=== PATIENT | female | born 1935 | race Caucasian/White ===

== ENCOUNTER 2016-10-20 08:00 | Outpatient (CLI) | payer MEDICARE, OTHER, MEDICAID | END 2016-10-20 08:01 | disposition home or self-care (01) | DX: J11.1 Influenza due to unidentified influenza virus with other respiratory manifestations (principal) ==

== ENCOUNTER 2017-02-02 01:51 | Outpatient (CLI) | payer MEDICARE, OTHER, MEDICAID | END 2017-02-02 01:52 | disposition critical access hospital (66) | DX: M25.511 Pain in right shoulder (principal); W07.XXXA Fall from chair, initial encounter; Y92.129 Unspecified place in nursing home as the place of occurrence of the external cause | CPT/HCPCS: A0425; A0429 ==

== ENCOUNTER 2017-02-02 01:55 | Emergency (ER) | payer MEDICARE, OTHER, MEDICAID ==
--- NOTE | 2017-02-02 03:22 | CT Preliminary Report ---
Exam: CT Head W/O IMPRESSION: 1. Stable appearance of old right MCA and right FORMING YARDAGE CONTROL OPERATOR territory infarcts compared to the brain CT from 05/20/2014. 2. No acute intracranial process identified. [facility] SITE ID: [id number]
--- NOTE | 2017-02-02 03:23 | XRAY Preliminary Report ---
Exam: XR Shoulder 3 View RT IMPRESSION: Mildly comminuted minimally displaced surgical neck fracture of the right humerus. [facility] SITE ID: [id number]
--- NOTE | 2017-02-02 03:25 | XRAY Report ---
EXAM: RIGHT SHOULDER RADIOGRAPHY EXAM DATE: 02/02/2017 02:57 AM. CLINICAL HISTORY: Fall and the right-sided, pain, COMPARISON: None. TECHNIQUE: 3 views. FINDINGS: Bones: Bones are severely osteopenic. There is a comminuted impacted fracture of the proximal right h umerus through the surgical neck with mild displacement of the greater tuberosity fragment. Distal ri ght clavicular osteotomy. Joints: No dislocation. Soft tissues: Median sternotomy. Lungs are clear. IMPRESSION: Mildly comminuted minimally displaced surgical neck fracture of the right humerus. [facility] Referring Provider Line: [phone] SITE ID: [id number]
--- NOTE | 2017-02-02 03:25 | ED Physician Documentation ---
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 Patient is non-verbal. According to ems patient fell earlier today. she was scheduled to have an arm x-ray tomorrow but night staff stated that they thought she was still in pain so they sent the patient in for evaluation. Review of Systems Unable to obtain: Dementia PD PAST MEDICAL HISTORY - Past Medical History Past Medical History: Yes Cardiovascular: Hypertension, High cholesterol, Atrial fibrillation, Arrhythmia Respiratory: Asthma, COPD Neuro: CVA Endocrine/Autoimmune: Type 2 diabetes Psych: Other Musculoskeletal: Osteoarthritis Other Past Medical History: Dementia; Spastic Hemiplegia affecting L nondominant side; Chronic Pain; Heart Failure; Unspecified Convulsions - Present Medications Home Medications: Ambulatory Orders Medication Instructions Recorded Confirmed Acetaminophen 1 tab PO BID 02/02/17 02/02/17 Benazepril HCl 1 tab PO DAILY 02/02/17 02/02/17 Carvedilol 25 mg PO BID 02/02/17 02/02/17 Furosemide [Lasix] 80 mg PO DAILY 02/02/17 02/02/17 Insulin Glargine [Lantus] 21 units SUBQ QPM 02/02/17 02/02/17 Levetiracetam [Keppra] 500 mg PO BID 02/02/17 02/02/17 Multivit-Min/Iron Fum/Folic AC 1 tab PO DAILY 02/02/17 02/02/17 [Djtbc-Aajicsm-Aeqxydgx Tablet] Warfarin Sodium [Coumadin] 2 mg PO DAILY 02/02/17 02/02/17 Warfarin [Coumadin] 1 mg PO DAILY 02/02/17 02/02/17 - Allergies Allergies/Adverse Reactions: Allergies Allergy/AdvReac Type Severity Reaction Status Date / Time lactose intolerance AdvReac Unknown Uncoded 02/02/17 02:23 - Social History Does the pt smoke?: No Smoking Status: Never smoker Does the pt drink ETOH?: No - Immunizations Immunizations are current?: No - POLST Patient has POLST: No PD ED PE EXPANDED - General General: Disheveled, poorly kept - HEENT HEENT: Atraumatic, Dry mucous membranes - Cardiac Cardiac: Regular Rate - Respiratory Respiratory: Clear to ausultation heaven. No: Accessory mm use, Retractions, Wheezing - Abdomen Abdomen: No: Rebound, Guarding - Extremities Extremities: Deformity, Right shoulder (gross deformity and tender to palpation) , Other (non verbal patient and cries out whenever she is touched) - Neuro Neuro: Confused, Other (demented) Results - Vitals Vitals: Vital Signs - 24 hr 02/02/17 02/02/17 01:58 03:07 Temperature 36.0 C L Heart Rate 63 68 Respiratory 18 18 Rate Blood Pressure 128/90 H 160/74 H O2 Saturation 97 100 Oxygen O2 Source Room air - Rads (name of study) right shoulder Radiology: Final report received (humeral surgical neck fracture) PD MEDICAL DECISION MAKING - ED course Complexity details: reviewed old records, reviewed results, re-evaluated patient ED course: Patient was seen and examined at bedside. Patient was non verbal and sent for imaging since she was on coumadin. When patient returned the results were reviewed. patient did have a surgical neck fracture. Patient was placed in a sling. Patient had no acute intracranial patholgy. Patient was stable for discharge with outpatient follow up. Departure - Departure Disposition: 01 Home, Self Care Clinical Impression: Humerus surgical neck fracture Condition: Good Instructions: ED Fx Upper Ext Follow-Up: Sid Owens MD [Provider Admit Priv/Credential] - Within 3 Days Comments: Your pain today is being caused by a fracture in your right arm. You will need to wear the sling for comfort. You should call Dr. owens to schedule a follow up appointment. Normally they are non surgical and there is not much too be done. You can take tylenol for pain. You should return to the emergency department for loss of pulses, severe new swelling, worsenign or uncontrollable symptoms.
--- NOTE | 2017-02-02 03:27 | CT Preliminary Report ---
Exam: CT Cervical Spine W/O IMPRESSION: No acute cervical spine fracture. [facility] SITE ID: [id number]
--- NOTE | 2017-02-02 03:30 | CT Report ---
EXAM: CT CERVICAL SPINE WITHOUT CONTRAST DATE: 02/02/2017 02:57 AM HISTORY: Pain, altered mental status, fall, on anticoagulation. COMPARISONS: None. TECHNIQUE: Thin-section axial images were acquired of the cervical spine without contrast. Post-proce ssing: Coronal and sagittal reformats. Other: None. In accordance with CT protocol optimization, one or more of the following dose reduction techniques w ere utilized for this exam: automated exposure control, adjustment of mA and/or KV based on patient s ize, or use of iterative reconstructive technique. FINDINGS: Alignment: Dextroscoliosis is noted at C2-C3, possibly positional. There is no spondylolisthesis on s agittal images. Bones: No acute cervical spine fracture is identified. Interspace Levels/Facets: C1-C2: Unremarkable. C2-C3: The left facet joint is fused. The spinal canal and foramina are patent. C3-C4: Unremarkable. C4-C5: Unremarkable. C5-C6: Unremarkable. C6-C7: Unremarkable. C7-T1: Unremarkable. Musculature: There is mild diffuse fatty atrophy of the posterior paraspinal muscles. Other: No acute abnormality is seen in the soft tissues of the neck. Bilateral apical scarring is not ed. IMPRESSION: No acute cervical spine fracture. [facility] Referring Provider Line: [phone] SITE ID: [id number]
[2017-02-02 03:39] VITALS: BP 165/71
--- NOTE | 2017-02-02 05:45 | CT Report ---
EXAM: CT HEAD EXAM DATE: 02/02/2017 02:56 AM. CLINICAL HISTORY: Altered mental status, fall, on anticoagulation. COMPARISON: Brain CT from 05/20/2014. TECHNIQUE: Multiaxial CT images were obtained from the foramen magnum to the vertex. IV contrast: Non e. Reformats: Coronal. In accordance with CT protocol optimization, one or more of the following dose reduction techniques w ere utilized for this exam: automated exposure control, adjustment of mA and/or KV based on patient s ize, or use of iterative reconstructive technique. FINDINGS: Parenchyma: No intraparenchymal hemorrhage. No evidence of mass, midline shift, or CT findings of acu te infarction. A large area of cystic encephalomalacia is present in the right frontotemporal region, likely representing an old anterior right MCA infarct. A moderate-sized area of encephalomalacia is noted in the mesial right occipital lobe, likely representing an old right CONSULTANT NURSE territory infarct. The se findings are unchanged compared to the prior CT. Sanchez-white differentiation is distinct elsewhere in the brain. Extraaxial Spaces: Normal for age. No subdural or epidural collections identified. Ventricles: The ventricles and cortical sulci are mildly enlarged, consistent with age-related tissue loss. Ex vacuo dilation of the right lateral ventricle is noted, as expected. Sinuses: Postsurgical changes from a cataract extraction are noted in the left globe. The paranasal s inuses are unremarkable. Right mastoidectomy changes are again seen. There is chronic opacity in the left mastoid sinus and middle ear cavity. Bones: No evidence of fracture or calvarial defect. Other: Mild scattered chronic microangiopathic white matter changes are suggested. Extensive intracra nial atherosclerosis is noted. IMPRESSION: 1. Stable appearance of old right MCA and right CONSULTANT NURSE territory infarcts compared to the brain CT from 05/20/2014. 2. No acute intracranial process identified. [facility] Referring Provider Line: [phone] SITE ID: [id number]
== END 2017-02-02 03:52 | disposition home or self-care (01) ==
LOC: EDUNIT# → ED 01:55
DX: S42.211A Unspecified displaced fracture of surgical neck of right humerus, initial encounter for closed fracture (principal); W07.XXXA Fall from chair, initial encounter; Y92.129 Unspecified place in nursing home as the place of occurrence of the external cause; I69.354 Hemiplegia and hemiparesis following cerebral infarction affecting left non-dominant side; I48.91 Unspecified atrial fibrillation; Z79.01 Long term (current) use of anticoagulants; I11.0 Hypertensive heart disease with heart failure; I50.9 Heart failure, unspecified; E11.9 Type 2 diabetes mellitus without complications; Z79.4 Long term (current) use of insulin; F03.90 Unspecified dementia, unspecified severity, without behavioral disturbance, psychotic disturbance, mood disturbance, and anxiety
CPT/HCPCS: 70450; 72125; 99284

== ENCOUNTER 2017-02-02 03:54 | Outpatient (CLI) | payer MEDICARE, OTHER, MEDICAID | END 2017-02-02 03:55 | disposition home or self-care (01) | DX: S42.214A Unspecified nondisplaced fracture of surgical neck of right humerus, initial encounter for closed fracture (principal) | CPT/HCPCS: A0425; A0428 ==

== ENCOUNTER 2017-02-16 10:50 | Outpatient (CLI) | payer MEDICARE, OTHER, MEDICAID ==
[2017-02-16 12:14] LABS: PT - PROTHROMBIN TIME 78.8 secs (9.9-12.6)
[2017-02-16 12:24] LABS: INR 6.9 (0.8-1.2)
== END 2017-02-16 10:51 | disposition home or self-care (01) ==
LOC: LAB.R 10:50
PROVIDERS: ATTEND Internal Medicine
DX: I48.91 Unspecified atrial fibrillation (principal)
CPT/HCPCS: 85610

== ENCOUNTER 2017-02-21 08:15 | Outpatient (CLI) | payer MEDICARE, OTHER, MEDICAID | END 2017-02-21 08:16 | disposition home or self-care (01) | LOC: LAB.R 08:15 | DX: R56.9 Unspecified convulsions (principal) | CPT/HCPCS: 80177 ==

== ENCOUNTER 2017-02-22 07:15 | Outpatient (CLI) | payer MEDICARE, OTHER, MEDICAID | END 2017-02-22 07:16 | disposition home or self-care (01) | LOC: LAB.R 07:15 | DX: R56.9 Unspecified convulsions (principal) | CPT/HCPCS: 80177 ==

== ENCOUNTER 2017-04-04 08:00 | Outpatient (CLI) | payer MEDICARE, OTHER, MEDICAID ==
[2017-04-04 20:14] LABS: CALCIUM 8.4 mg/dL (8.5-10.3); CREATININE 0.9 mg/dL (0.4-1.0); POTASSIUM 4.8 mmol/L (3.5-5.0)
== END 2017-04-04 08:01 ==
LOC: LAB.R 08:00
DX: Z79.899 Other long term (current) drug therapy (principal)
CPT/HCPCS: 80048

== ENCOUNTER 2017-07-08 08:00 | Outpatient (CLI) | payer MEDICARE, OTHER, MEDICAID ==
[2017-07-08 17:49] LABS: HEMOGLOBIN A1C 1.48 g/dL
== END 2017-07-08 08:01 | disposition home or self-care (01) ==
LOC: LAB.R 08:00
DX: E11.9 Type 2 diabetes mellitus without complications (principal)
CPT/HCPCS: 83036

== ENCOUNTER 2017-12-02 12:25 | Outpatient (CLI) | payer MEDICARE, OTHER, MEDICAID ==
[2017-12-02 15:22] LABS: BASOPHILS % (AUTO) 0.4 %; EOSINOPHILS # (AUTO) 0.2 10^3/uL (0.0-0.7); EOSINOPHILS % (AUTO) 2.6 %; HGB - HEMOGLOBIN 14.7 g/dL (12.0-16.0); LYMPHOCYTES # (AUTO) 2.9 10^3/uL (1.5-3.5); LYMPHOCYTES % (AUTO) 35.6 %; MEAN CORPUSCULAR HEMOGLOBIN 31.2 pg (27.0-31.0); MEAN CORPUSCULAR HGB CONC 33.7 g/dL (32.0-36.0); MEAN CORPUSCULAR VOLUME 92.8 fL (81.0-99.0); MEAN PLATELET VOLUME 10.8 fL (7.9-10.8); MONOCYTES # (AUTO) 0.8 10^3/uL (0.0-1.0); NEUTROPHILS # (AUTO) 4.2 10^3/uL (1.5-6.6); NEUTROPHILS % (AUTO) 51.4 %; PLT - PLATELET COUNT 137 10^3/uL (130-450); RED CELL DISTRIBUTION WIDTH 13.9 % (12.0-15.0); WHITE BLOOD COUNT 8.1 x10^3/uL (4.8-10.8)
[2017-12-02 16:22] LABS: HEMOGLOBIN A1C 1.34 g/dL; HEMOGLOBIN A1C % 9.8 % (4.6-6.2)
== END 2017-12-02 12:26 | disposition home or self-care (01) ==
LOC: LAB.R 12:25
DX: I10 Essential (primary) hypertension (principal); I50.9 Heart failure, unspecified; E11.319 Type 2 diabetes mellitus with unspecified diabetic retinopathy without macular edema
CPT/HCPCS: 80053; 83036; 85025

== ENCOUNTER 2017-12-03 08:00 | Outpatient (CLI) | payer MEDICARE, OTHER, MEDICAID ==
[2017-12-03 18:59] LABS: ALBUMIN 3.4 g/dL (3.2-5.5); ALBUMIN/GLOBULIN RATIO 1.1 (1.0-2.2); BILIRUBIN,TOTAL 0.6 mg/dL (0.2-1.0); CALCIUM 8.2 mg/dL (8.5-10.3); CREATININE 0.9 mg/dL (0.4-1.0); TOTAL PROTEIN 6.5 g/dL (6.7-8.2)
== END 2017-12-03 08:01 | disposition home or self-care (01) ==
LOC: LAB.R 08:00
DX: I10 Essential (primary) hypertension (principal); E11.319 Type 2 diabetes mellitus with unspecified diabetic retinopathy without macular edema; I50.9 Heart failure, unspecified
CPT/HCPCS: 80053; 80177

== ENCOUNTER 2018-02-12 16:45 | Outpatient (CLI) | payer MEDICARE, OTHER, MEDICAID ==
[2018-02-12 17:20] LABS: CALCIUM 8.6 mg/dL (8.5-10.3); CREATININE 0.8 mg/dL (0.4-1.0)
[2018-02-12 17:42] LABS: HB2 TOTAL 17.8 g/dL; HEMOGLOBIN A1C 1.6 g/dL; HEMOGLOBIN A1C % 10.4 % (4.6-6.2)
== END 2018-02-12 16:46 ==
LOC: LAB.R 16:45
DX: R79.89 Other specified abnormal findings of blood chemistry (principal); E11.65 Type 2 diabetes mellitus with hyperglycemia; G40.89 Other seizures
CPT/HCPCS: 80048; 80177; 83036

== ENCOUNTER 2018-02-20 08:00 | Outpatient (CLI) | payer MEDICARE, OTHER, MEDICAID ==
[2018-02-20 15:07] LABS: CALCIUM 8.6 mg/dL (8.5-10.3)
== END 2018-02-20 08:01 | disposition home or self-care (01) ==
LOC: LAB.R 08:00
DX: E11.65 Type 2 diabetes mellitus with hyperglycemia (principal)
CPT/HCPCS: 80048

== ENCOUNTER 2018-03-08 08:00 | Outpatient (CLI) | payer MEDICARE, OTHER, MEDICAID ==
[2018-03-08 16:48] LABS: CALCIUM 8.7 mg/dL (8.5-10.3); CREATININE 0.9 mg/dL (0.4-1.0)
== END 2018-03-08 08:01 | disposition home or self-care (01) ==
LOC: LAB.R 08:00
DX: G40.909 Epilepsy, unspecified, not intractable, without status epilepticus (principal)
CPT/HCPCS: 80048

== ENCOUNTER 2018-05-14 17:07 | Outpatient (CLI) | payer MEDICARE, OTHER, MEDICAID | END 2018-05-14 17:08 | disposition home or self-care (01) | LOC: LAB.R 17:07 | DX: R56.9 Unspecified convulsions (principal) | CPT/HCPCS: 80177 ==

== ENCOUNTER 2018-08-07 23:20 | Outpatient (CLI) | payer MEDICARE, OTHER, MEDICAID ==
[2018-08-08 00:20] LABS: ALBUMIN 3.3 g/dL (3.2-5.5); ALBUMIN/GLOBULIN RATIO 1.1 (1.0-2.2); BILIRUBIN,TOTAL 0.9 mg/dL (0.2-1.0); CALCIUM 8.3 mg/dL (8.5-10.3); CREATININE 0.6 mg/dL (0.4-1.0); TOTAL PROTEIN 6.4 g/dL (6.7-8.2)
== END 2018-08-07 23:59 | disposition home or self-care (01) ==
LOC: LAB.R 23:20
DX: I63.9 Cerebral infarction, unspecified (principal); I25.10 Atherosclerotic heart disease of native coronary artery without angina pectoris; G81.14 Spastic hemiplegia affecting left nondominant side; E11.9 Type 2 diabetes mellitus without complications; R56.9 Unspecified convulsions
CPT/HCPCS: 80053; 80177; 81599; 83036; 85025

== ENCOUNTER 2018-08-10 15:25 | Outpatient (CLI) | payer MEDICARE, OTHER, MEDICAID ==
[2018-08-10 15:50] LABS: BASOPHILS # (AUTO) 0.1 10^3/uL (0.0-0.1); BASOPHILS % (AUTO) 1.1 %; EOSINOPHILS # (AUTO) 0.2 10^3/uL (0.0-0.7); EOSINOPHILS % (AUTO) 3.1 %; LYMPHOCYTES # (AUTO) 2.4 10^3/uL (1.5-3.5); MEAN CORPUSCULAR HEMOGLOBIN 31.5 pg (27.0-31.0); MEAN CORPUSCULAR HGB CONC 33.7 g/dL (32.0-36.0); MEAN CORPUSCULAR VOLUME 93.7 fL (81.0-99.0); MEAN PLATELET VOLUME 9.9 fL (7.9-10.8); MONOCYTES # (AUTO) 0.7 10^3/uL (0.0-1.0); MONOCYTES % (AUTO) 10.8 %; NEUTROPHILS # (AUTO) 2.9 10^3/uL (1.5-6.6); PLT - PLATELET COUNT 157 10^3/uL (130-450); RED BLOOD COUNT 4.45 10^6/uL (4.20-5.40); RED CELL DISTRIBUTION WIDTH 13.7 % (12.0-15.0); WHITE BLOOD COUNT 6.3 x10^3/uL (4.8-10.8)
[2018-08-10 16:05] LABS: HB2 TOTAL 15.1 g/dL; HEMOGLOBIN A1C 0.79 g/dL; HEMOGLOBIN A1C % 6.9 % (4.6-6.2)
== END 2018-08-10 15:26 | disposition home or self-care (01) ==
LOC: LAB.R 15:25
DX: E11.65 Type 2 diabetes mellitus with hyperglycemia (principal)
CPT/HCPCS: 83036; 85025

== ENCOUNTER 2018-12-17 08:00 | Outpatient (CLI) | payer MEDICARE, OTHER, MEDICAID ==
[2018-12-17 12:18] LABS: CALCIUM 8.6 mg/dL (8.5-10.3); CREATININE 0.9 mg/dL (0.4-1.0)
== END 2018-12-17 23:59 | disposition home or self-care (01) ==
LOC: LAB.R 08:00
DX: E11.319 Type 2 diabetes mellitus with unspecified diabetic retinopathy without macular edema (principal)
CPT/HCPCS: 80048

== ENCOUNTER 2018-12-24 08:00 | Outpatient (CLI) | payer MEDICARE, OTHER, MEDICAID ==
[2018-12-24 16:49] LABS: BASOPHILS % (AUTO) 0.6 %; EOSINOPHILS # (AUTO) 0.2 10^3/uL (0.0-0.7); EOSINOPHILS % (AUTO) 2.5 %; HGB - HEMOGLOBIN 14.5 g/dL (12.0-16.0); LYMPHOCYTES # (AUTO) 2.9 10^3/uL (1.5-3.5); MEAN CORPUSCULAR HEMOGLOBIN 30.3 pg (27.0-31.0); MEAN CORPUSCULAR HGB CONC 32.7 g/dL (32.0-36.0); MEAN CORPUSCULAR VOLUME 92.8 fL (81.0-99.0); MEAN PLATELET VOLUME 11.2 fL (7.9-10.8); MONOCYTES # (AUTO) 0.7 10^3/uL (0.0-1.0); MONOCYTES % (AUTO) 8.8 %; NEUTROPHILS # (AUTO) 4.2 10^3/uL (1.5-6.6); NEUTROPHILS % (AUTO) 52.1 %; PLT - PLATELET COUNT 177 10^3/uL (130-450); RED BLOOD COUNT 4.78 10^6/uL (4.20-5.40); RED CELL DISTRIBUTION WIDTH 15.1 % (12.0-15.0); WHITE BLOOD COUNT 8.1 x10^3/uL (4.8-10.8)
[2018-12-24 17:00] LABS: ALBUMIN 3.9 g/dL (3.2-5.5); ALBUMIN/GLOBULIN RATIO 1.1 (1.0-2.2); BILIRUBIN,TOTAL 0.6 mg/dL (0.2-1.0); CALCIUM 9.3 mg/dL (8.5-10.3); CREATININE 0.9 mg/dL (0.4-1.0); TOTAL PROTEIN 7.3 g/dL (6.7-8.2)
[2018-12-24 17:04] LABS: PLATELET ESTIMATE, MANUAL NORMAL (130-450,000) (NORMAL); PLATELET MORPHOLOGY NORMAL APPEARANCE (NORMAL); RBC MORPHOLOGY (MULTIPLE) 1+ ANISOCYTOSIS (NORMAL)
== END 2018-12-24 23:59 | disposition home or self-care (01) ==
LOC: LAB.R 08:00
PROVIDERS: ATTEND Family Medicine
DX: R79.89 Other specified abnormal findings of blood chemistry (principal); I63.9 Cerebral infarction, unspecified; I10 Essential (primary) hypertension; I25.10 Atherosclerotic heart disease of native coronary artery without angina pectoris; R68.89 Other general symptoms and signs
CPT/HCPCS: 80053; 85025

== ENCOUNTER 2019-01-14 08:00 | Outpatient (CLI) | payer MEDICARE, OTHER, MEDICAID | END 2019-01-14 23:59 | disposition home or self-care (01) | LOC: LAB.R 08:00 | DX: R19.7 Diarrhea, unspecified (principal) | CPT/HCPCS: 87493 ==

== ENCOUNTER 2019-01-27 08:00 | Outpatient (CLI) | payer MEDICARE, OTHER, MEDICAID ==
[2019-01-27 08:02] LABS: HB2 TOTAL 14.6 g/dL; HEMOGLOBIN A1C 0.81 g/dL; HEMOGLOBIN A1C % 7.2 % (4.6-6.2)
== END 2019-01-27 23:59 | disposition home or self-care (01) ==
LOC: LAB.R 08:00
DX: E10.9 Type 1 diabetes mellitus without complications (principal)
CPT/HCPCS: 83036

== ENCOUNTER 2019-07-03 08:00 | Outpatient (CLI) | payer MEDICARE, OTHER, MEDICAID ==
[2019-07-03 23:10] LABS: CALCIUM 8.4 mg/dL (8.5-10.3); CREATININE 0.9 mg/dL (0.4-1.0)
[2019-07-04 01:42] LABS: HB2 TOTAL 13.8 g/dL; HEMOGLOBIN A1C 0.75 g/dL; HEMOGLOBIN A1C % 7.1 % (4.6-6.2)
== END 2019-07-03 23:59 | disposition home or self-care (01) ==
LOC: LAB.R 08:00
PROVIDERS: ATTEND Family Medicine
DX: I48.91 Unspecified atrial fibrillation (principal); E11.319 Type 2 diabetes mellitus with unspecified diabetic retinopathy without macular edema
CPT/HCPCS: 80048; 83036

== ENCOUNTER 2019-07-29 15:10 | Outpatient (CLI) | payer MEDICARE, OTHER, MEDICAID ==
[2019-07-29 16:18] LABS: ALBUMIN 3.4 g/dL (3.2-5.5); ALBUMIN/GLOBULIN RATIO 1.1 (1.0-2.2); BILIRUBIN,TOTAL 0.7 mg/dL (0.2-1.0); CALCIUM 8.4 mg/dL (8.5-10.3); CREATININE 0.9 mg/dL (0.4-1.0); TOTAL PROTEIN 6.5 g/dL (6.7-8.2)
== END 2019-07-29 23:59 | disposition home or self-care (01) ==
LOC: LAB.R 15:10
PROVIDERS: ATTEND Family Medicine
DX: E11.319 Type 2 diabetes mellitus with unspecified diabetic retinopathy without macular edema (principal); I63.9 Cerebral infarction, unspecified
CPT/HCPCS: 80053; 80177

== ENCOUNTER 2019-08-20 16:36 | Outpatient (CLI) | payer MEDICARE, OTHER, MEDICAID | END 2019-08-20 23:59 | disposition home or self-care (01) | LOC: LAB.R 16:36 | DX: R56.9 Unspecified convulsions (principal) | CPT/HCPCS: 80177 ==

== ENCOUNTER 2019-09-02 22:00 | Outpatient (CLI) | payer MEDICARE, OTHER, MEDICAID ==
[2019-09-02 23:05] LABS: HB2 TOTAL 13.3 g/dL; HEMOGLOBIN A1C 0.65 g/dL; HEMOGLOBIN A1C % 6.6 % (4.6-6.2)
== END 2019-09-02 23:59 | disposition home or self-care (01) ==
LOC: LAB.R 22:00
DX: E11.319 Type 2 diabetes mellitus with unspecified diabetic retinopathy without macular edema (principal)
CPT/HCPCS: 83036

== ENCOUNTER 2019-11-12 12:20 | Outpatient (CLI) | payer MEDICARE, OTHER, MEDICAID | END 2019-11-12 12:21 | disposition critical access hospital (66) | LOC: EMS 12:20 | PROVIDERS: ATTEND Surgery | DX: M79.604 Pain in right leg (principal); M79.605 Pain in left leg ==

== ENCOUNTER 2019-11-12 12:22 | Emergency (ER) | payer MEDICARE, OTHER, MEDICAID ==
--- NOTE | 2019-11-12 13:05 | ED Physician Documentation ---
History of Present Illness - Stated complaint Stated Complaint: LOWER EXTREMITY PX - Chief complaint Chief Complaint: Ext Problem - History obtained from History obtained from: EMS - History of Present Illness Timing: Today (84-year-old woman presents by ambulance from a group home for concern for DVT. No history is available from the patient due to severe dementia although I guess 1 of the techs here knows her and reportedly is at her baseline. At the group home it was noted that the right leg was tender today. She is on Xarelto for atrial fibrillation.) Review of Systems Unable to obtain: Dementia PD PAST MEDICAL HISTORY - Past Medical History Cardiovascular: Hypertension, High cholesterol, Atrial fibrillation, Arrhythmia Respiratory: Asthma, COPD Endocrine/Autoimmune: Type 2 diabetes Psych: Other Musculoskeletal: Osteoarthritis - Present Medications Home Medications: Ambulatory Orders Medication Instructions Recorded Confirmed Acetaminophen 1 tab PO BID 02/02/17 02/02/17 Benazepril HCl 1 tab PO DAILY 02/02/17 02/02/17 Carvedilol 25 mg PO BID 02/02/17 02/02/17 Furosemide [Lasix] 80 mg PO DAILY 02/02/17 02/02/17 Insulin Glargine [Lantus] 21 units SUBQ QPM 02/02/17 02/02/17 Levetiracetam [Keppra] 500 mg PO BID 02/02/17 02/02/17 Multivit-Min/Iron Fum/Folic AC 1 tab PO DAILY 02/02/17 02/02/17 [Lnmpo-Saytfjt-Rxhashnn Tablet] Warfarin Sodium [Coumadin] 2 mg PO DAILY 02/02/17 02/02/17 Warfarin [Coumadin] 1 mg PO DAILY 02/02/17 02/02/17 - Allergies Allergies/Adverse Reactions: Allergies Allergy/AdvReac Type Severity Reaction Status Date / Time lactose intolerance AdvReac Unknown Uncoded 02/02/17 02:23 - Social History Does the pt smoke?: No Smoking Status: Never smoker Does the pt drink ETOH?: No - Immunizations Immunizations are current?: No - POLST Patient has POLST: No PD ED PE NORMAL - Vitals Vital signs reviewed: Yes - General General: Other (She is basically nonverbal, she will follow commands and shake my hand though. Will not open her eyes though. She will say ow to painful stimulus.) - Respiratory Respiratory: No respiratory distress, Clear bilaterally - Abdomen Abdomen: Non tender - Extremities Extremities: Other (There is no obvious asymmetry between the legs, but she definitely says out when I palpate the right calf. No evidence of cellulitis.) - Neuro Eye Opening: None Motor: Obeys Commands Verbal: Inappropriate GCS Score: 10 Results - Vitals Vitals: Vital Signs - 24 hr 11/12/19 11/12/19 12:30 14:53 Temperature 37.2 C Heart Rate 78 72 Respiratory 18 18 Rate Blood Pressure 96/71 98/47 L O2 Saturation 97 96 Oxygen O2 Source Room air - Labs Labs: Laboratory Tests 11/12/19 11/12/19 13:24 13:24 WBC 7.2 RBC 3.94 L Hgb 12.1 Hct 37.4 MCV 94.9 MCH 30.7 MCHC 32.4 RDW 14.3 Plt Count 74 L MPV 12.6 H Neut # (Auto) 4.2 Lymph # (Auto) 2.0 [place] # (Auto) 0.9 Eos # (Auto) 0.0 Baso # (Auto) 0.0 Absolute Nucleated RBC 0.00 Nucleated RBC % 0.0 Sodium 141 Potassium 3.8 Chloride 103 Carbon Dioxide 26 Anion Gap 12.0 BUN 32 H Creatinine 1.0 Estimated GFR (MDRD) 53 L Glucose 306 H Calcium 8.2 L Total Bilirubin 1.2 H AST 30 ALT 14 Alkaline Phosphatase 90 Total Protein 6.5 L Albumin 3.3 Globulin 3.2 Albumin/Globulin Ratio 1.0 Lipase 22 - Rads (name of study) X-rays of the right tib-fib and right femur Radiology: EMP read contemporaneously (IMPRESSION: No fracture detected. Modera te suprapatellar joint effusion. ) dvt doppler RLE Radiology: Final report received (Negative) PD MEDICAL DECISION MAKING - ED course ED course: 84-year-old woman with potentially right lower extremity pain, somewhat hard to tell as no history is available. No evidence of infection. Her work-up dem onstrated some hyperglycemia and a negative DVT ultrasound. Departure - Departure Disposition: 01 Home, Self Care Clinical Impression: Pain in extremity Condition: Good Record reviewed to determine appropriate education?: Yes Comments: The x-rays of your femur, as well as your tibia and fibula are negative, as is your ultrasound. There is no evidence of a blood clot. Please follow-up with your primary care physician for further concerns. Discharge Date/Time: 11/12/19 15:11
[2019-11-12 13:32] LABS: BASOPHILS % (AUTO) 0.4 %; EOSINOPHILS % (AUTO) 0.4 %; HGB - HEMOGLOBIN 12.1 g/dL (12.0-16.0); LYMPHOCYTES % (AUTO) 27.2 %; MEAN CORPUSCULAR HEMOGLOBIN 30.7 pg (27.0-31.0); MEAN CORPUSCULAR HGB CONC 32.4 g/dL (32.0-36.0); MEAN CORPUSCULAR VOLUME 94.9 fL (81.0-99.0); MEAN PLATELET VOLUME 12.6 fL (7.9-10.8); MONOCYTES # (AUTO) 0.9 10^3/uL (0.0-1.0); MONOCYTES % (AUTO) 13.1 %; NEUTROPHILS # (AUTO) 4.2 10^3/uL (1.5-6.6); NEUTROPHILS % (AUTO) 58.6 %; PLT - PLATELET COUNT 74 10^3/uL (130-450); RED BLOOD COUNT 3.94 10^6/uL (4.20-5.40); RED CELL DISTRIBUTION WIDTH 14.3 % (12.0-15.0); WHITE BLOOD COUNT 7.2 x10^3/uL (4.8-10.8)
[2019-11-12 13:53] LABS: ALBUMIN 3.3 g/dL (3.2-5.5); BILIRUBIN,TOTAL 1.2 mg/dL (0.2-1.0); CALCIUM 8.2 mg/dL (8.5-10.3); TOTAL PROTEIN 6.5 g/dL (6.7-8.2)
--- NOTE | 2019-11-12 14:00 | XRAY Report ---
Reason: RLE pain Procedure Date: 11/12/2019 Accession Number: [id number] / [id number] Procedure: XR - Femur 2V RT CPT Code: Final Report FULL RESULT: EXAM: RIGHT FEMUR RADIOGRAPHY. EXAM DATE: 11/12/2019 01:49 PM. CLINICAL HISTORY: Right lower extremity pain. COMPARISON: LEG LOWER RT 11/12/2019 1:15 PM. TECHNIQUE: 2 views. FINDINGS: Bones: Generalized bony demineralization. No fracture or periosteal reaction detected. Osteophytic spurring suggested at the lateral margin of the acetabulum. Joints: Moderate joint space narrowing at the hip and mild joint space narrowing at the knee. Soft Tissues: There is a moderate suprapatellar joint effusion. Arterial calcification seen throughout the thigh. IMPRESSION: No fracture detected. Moderate suprapatellar joint effusion. [facility]
--- NOTE | 2019-11-12 14:01 | XRAY Report ---
Reason: RLE pain Procedure Date: 11/12/2019 Accession Number: [id number] / [id number] Procedure: XR - Tib/Fib RT CPT Code: Final Report FULL RESULT: EXAM: RIGHT TIBIA/FIBULA RADIOGRAPHY EXAM DATE: 11/12/2019 01:50 PM. CLINICAL HISTORY: RLE pain. COMPARISON: None. TECHNIQUE: 2 views. Clothing and cushion artifact. FINDINGS: Bones: Bones appear osteopenic. No fracture or bone lesion. Joints: The visualized knee and ankle joints are normal. No effusions. Soft Tissues: Atherosclerotic arterial calcifications. Calcaneal enthesophytes. IMPRESSION: No fracture. [facility]
--- NOTE | 2019-11-12 14:41 | Ultrasound Report ---
Reason: leg pain Procedure Date: 11/12/2019 Accession Number: [id number] / [id number] Procedure: US - Duplex Ext Veins Right CPT Code: Final Report FULL RESULT: EXAM: RIGHT LOWER EXTREMITY VENOUS ULTRASOUND EXAM DATE: 11/12/2019 02:28 PM. CLINICAL HISTORY: Leg pain. COMPARISON: None. TECHNIQUE: Real-time sonographic vascular imaging was performed by the ordering machine operator through the lower extremity utilizing both color-flow and Doppler spectral analysis. Multiple herbicide service sales representative static images were saved for review. FINDINGS: Common Femoral Vein (CFV): Normal. CFV-GSV Junction: Normal. Profunda Femoral Vein (PFV): Normal. Femoral Vein (FV) Prox: Normal. Femoral Vein (FV) Mid: Normal. Femoral Vein (FV) Dist: Normal. Popliteal Vein: Normal. Posterior Tibial Veins: Normal. Peroneal Veins: Normal. Contralateral Side CFV: Normal. Other: None. IMPRESSION: No evidence for deep venous thrombosis in the right lower extremity. [facility]
[2019-11-12 14:54] VITALS: BP 98/47
== END 2019-11-12 15:11 | disposition home or self-care (01) ==
LOC: EDUNIT# → ED 12:22
DX: M79.661 Pain in right lower leg (principal); E11.65 Type 2 diabetes mellitus with hyperglycemia; Z79.4 Long term (current) use of insulin; I48.91 Unspecified atrial fibrillation; Z79.01 Long term (current) use of anticoagulants; I10 Essential (primary) hypertension; F03.90 Unspecified dementia, unspecified severity, without behavioral disturbance, psychotic disturbance, mood disturbance, and anxiety
CPT/HCPCS: 36415; 80053; 83690; 85025; 99281; 99284

== ENCOUNTER 2019-11-12 15:14 | Outpatient (CLI) | payer MEDICARE, OTHER, MEDICAID | END 2019-11-12 15:15 | disposition home or self-care (01) | LOC: EMS 15:14 | PROVIDERS: ATTEND Surgery | DX: M79.604 Pain in right leg (principal); M79.605 Pain in left leg; R41.0 Disorientation, unspecified; R53.83 Other fatigue | CPT/HCPCS: A0425; A0428; A0429 ==

== ENCOUNTER 2019-11-13 11:30 | Outpatient (CLI) | payer MEDICARE, OTHER, MEDICAID ==
[2019-11-14 23:07] LABS: BILIRUBIN,URINE NEGATIVE (NEGATIVE); GLUCOSE, URINE (UA) NEGATIVE (NEGATIVE); KETONES,URINE (UA) NEGATIVE (NEGATIVE); LEUKOCYTE ESTERASE, URINE NEGATIVE (NEGATIVE); NITRITE,URINE NEGATIVE (NEGATIVE); OCCULT BLOOD,URINE MODERATE (NEGATIVE); PH,URINE 7.5 PH (5.0-7.5); PROTEIN,URINE 30 mg/dL (NEGATIVE); UROBILINOGEN,URINE 0.2 (NORMAL) E.U./dL (NORMAL)
[2019-11-14 23:11] LABS: CLARITY,URINE SL. CLOUDY (CLEAR)
[2019-11-14 23:30] LABS: AMORPHOUS SEDIMENT,UR Few /LPF; BACTERIA,URINE Moderate /HPF (None Seen); CRYSTALS,URINE 0-2 Triple Phosphate /LPF; SQUAMOUS EPITHELIAL CELL,UR NONE SEEN (<= Few)
== END 2019-11-13 11:31 | disposition home or self-care (01) ==
LOC: LAB.R 11:30
PROVIDERS: ATTEND Family Medicine
DX: Z79.4 Long term (current) use of insulin (principal)
CPT/HCPCS: 81001; 81003; 87077; 87086; 87181

== ENCOUNTER 2019-11-16 14:15 | Outpatient (CLI) | payer MEDICARE, OTHER, MEDICAID ==
[2019-11-16 16:47] LABS: BASOPHILS % (AUTO) 0.5 %; EOSINOPHILS # (AUTO) 0.1 10^3/uL (0.0-0.7); EOSINOPHILS % (AUTO) 2.1 %; HGB - HEMOGLOBIN 12.4 g/dL (12.0-16.0); LYMPHOCYTES # (AUTO) 1.7 10^3/uL (1.5-3.5); MEAN CORPUSCULAR HEMOGLOBIN 31.2 pg (27.0-31.0); MEAN CORPUSCULAR HGB CONC 32.2 g/dL (32.0-36.0); MEAN CORPUSCULAR VOLUME 96.7 fL (81.0-99.0); MEAN PLATELET VOLUME 14.1 fL (7.9-10.8); MONOCYTES # (AUTO) 0.9 10^3/uL (0.0-1.0); MONOCYTES % (AUTO) 15.5 %; NEUTROPHILS % (AUTO) 51.6 %; PLT - PLATELET COUNT 90 10^3/uL (130-450); RED BLOOD COUNT 3.98 10^6/uL (4.20-5.40); RED CELL DISTRIBUTION WIDTH 14.6 % (12.0-15.0); WHITE BLOOD COUNT 5.8 x10^3/uL (4.8-10.8)
[2019-11-16 17:17] LABS: ALBUMIN 3.4 g/dL (3.2-5.5); BILIRUBIN,TOTAL 1.4 mg/dL (0.2-1.0); CALCIUM 8.4 mg/dL (8.5-10.3); TOTAL PROTEIN 6.8 g/dL (6.7-8.2)
== END 2019-11-16 23:59 | disposition home or self-care (01) ==
LOC: LAB.R 14:15
PROVIDERS: ATTEND Family Medicine
DX: E11.319 Type 2 diabetes mellitus with unspecified diabetic retinopathy without macular edema (principal)
CPT/HCPCS: 80053; 85025

== ENCOUNTER 2020-02-05 08:00 | Outpatient (CLI) | payer MEDICARE, OTHER, MEDICAID ==
[2020-02-05 18:32] LABS: BASOPHILS # (AUTO) 0.1 10^3/uL (0.0-0.1); EOSINOPHILS # (AUTO) 0.2 10^3/uL (0.0-0.7); EOSINOPHILS % (AUTO) 3.7 %; HGB - HEMOGLOBIN 13.2 g/dL (12.0-16.0); LYMPHOCYTES # (AUTO) 2.3 10^3/uL (1.5-3.5); LYMPHOCYTES % (AUTO) 36.5 %; MEAN CORPUSCULAR HEMOGLOBIN 30.1 pg (27.0-31.0); MEAN CORPUSCULAR VOLUME 93.8 fL (81.0-99.0); MONOCYTES # (AUTO) 0.8 10^3/uL (0.0-1.0); MONOCYTES % (AUTO) 12.7 %; NEUTROPHILS # (AUTO) 2.8 10^3/uL (1.5-6.6); NEUTROPHILS % (AUTO) 45.9 %; PLT - PLATELET COUNT 118 10^3/uL (130-450); RED BLOOD COUNT 4.39 10^6/uL (4.20-5.40); RED CELL DISTRIBUTION WIDTH 18.7 % (12.0-15.0); WHITE BLOOD COUNT 6.2 x10^3/uL (4.8-10.8)
[2020-02-05 18:39] LABS: ALBUMIN 3.4 g/dL (3.2-5.5); ALBUMIN/GLOBULIN RATIO 0.9 (1.0-2.2); BILIRUBIN,TOTAL 0.8 mg/dL (0.2-1.0); CALCIUM 8.6 mg/dL (8.5-10.3); TOTAL PROTEIN 7.3 g/dL (6.7-8.2)
== END 2020-02-05 08:01 | disposition home or self-care (01) ==
LOC: LAB.R 08:00
DX: E11.9 Type 2 diabetes mellitus without complications (principal); I48.91 Unspecified atrial fibrillation
CPT/HCPCS: 80053; 85025

== ENCOUNTER 2020-02-23 20:30 | Outpatient (CLI) | payer MEDICARE, OTHER, MEDICAID ==
[2020-02-23 21:03] LABS: CALCIUM 8.2 mg/dL (8.5-10.3); CREATININE 0.9 mg/dL (0.4-1.0)
== END 2020-02-23 23:59 | disposition home or self-care (01) ==
LOC: LAB.R 20:30
DX: I50.9 Heart failure, unspecified (principal)
CPT/HCPCS: 80048

== ENCOUNTER 2020-05-23 08:00 | Outpatient (CLI) | payer MEDICARE, OTHER, MEDICAID ==
[2020-05-23 21:49] LABS: BASOPHILS # (AUTO) 0.1 10^3/uL (0.0-0.1); BASOPHILS % (AUTO) 1.1 %; EOSINOPHILS # (AUTO) 0.1 10^3/uL (0.0-0.7); EOSINOPHILS % (AUTO) 2.5 %; HGB - HEMOGLOBIN 13.2 g/dL (12.0-16.0); LYMPHOCYTES # (AUTO) 1.5 10^3/uL (1.5-3.5); LYMPHOCYTES % (AUTO) 33.5 %; MEAN CORPUSCULAR HEMOGLOBIN 30.5 pg (27.0-31.0); MEAN CORPUSCULAR HGB CONC 31.5 g/dL (32.0-36.0); MEAN CORPUSCULAR VOLUME 96.8 fL (81.0-99.0); MONOCYTES # (AUTO) 0.7 10^3/uL (0.0-1.0); MONOCYTES % (AUTO) 15.1 %; NEUTROPHILS # (AUTO) 2.1 10^3/uL (1.5-6.6); NEUTROPHILS % (AUTO) 47.8 %; PLT - PLATELET COUNT 68 10^3/uL (130-450); RED BLOOD COUNT 4.33 10^6/uL (4.20-5.40); RED CELL DISTRIBUTION WIDTH 17.4 % (12.0-15.0); WHITE BLOOD COUNT 4.5 x10^3/uL (4.8-10.8)
[2020-05-23 21:58] LABS: ALBUMIN/GLOBULIN RATIO 0.9 (1.0-2.2); BILIRUBIN,TOTAL 2.4 mg/dL (0.2-1.0); CALCIUM 8.4 mg/dL (8.5-10.3); TOTAL PROTEIN 6.3 g/dL (6.7-8.2)
== END 2020-05-23 23:59 | disposition home or self-care (01) ==
LOC: LAB.R 08:00
DX: D64.9 Anemia, unspecified (principal); R56.9 Unspecified convulsions; I50.9 Heart failure, unspecified; I48.91 Unspecified atrial fibrillation; B97.29 Other coronavirus as the cause of diseases classified elsewhere
CPT/HCPCS: 80053; 85025

== ENCOUNTER 2020-07-18 22:20 | Outpatient (CLI) | payer MEDICARE, OTHER, MEDICAID ==
[2020-07-18 16:01] LABS: ALBUMIN 2.7 g/dL (3.2-5.5); ALBUMIN/GLOBULIN RATIO 0.7 (1.0-2.2); BILIRUBIN,TOTAL 9.1 mg/dL (0.2-1.0); CALCIUM 8.7 mg/dL (8.5-10.3); CREATININE 0.8 mg/dL (0.4-1.0); TOTAL PROTEIN 6.6 g/dL (6.7-8.2)
== END 2020-07-18 23:59 | disposition home or self-care (01) ==
LOC: LAB.R 22:20
DX: I10 Essential (primary) hypertension (principal)
CPT/HCPCS: 80053; 85025

== ENCOUNTER 2020-07-19 12:15 | Outpatient (CLI) | payer MEDICARE, OTHER, MEDICAID ==
[2020-07-19 13:42] LABS: BASOPHILS # (AUTO) 0.1 10^3/uL (0.0-0.1); BASOPHILS % (AUTO) 1.5 %; EOSINOPHILS # (AUTO) 0.1 10^3/uL (0.0-0.7); EOSINOPHILS % (AUTO) 1.8 %; HGB - HEMOGLOBIN 14.2 g/dL (12.0-16.0); LYMPHOCYTES # (AUTO) 1.2 10^3/uL (1.5-3.5); LYMPHOCYTES % (AUTO) 31.2 %; MEAN CORPUSCULAR HEMOGLOBIN 31.3 pg (27.0-31.0); MEAN CORPUSCULAR HGB CONC 34.8 g/dL (32.0-36.0); MEAN CORPUSCULAR VOLUME 90.1 fL (81.0-99.0); MONOCYTES # (AUTO) 0.7 10^3/uL (0.0-1.0); MONOCYTES % (AUTO) 17.3 %; NEUTROPHILS # (AUTO) 1.9 10^3/uL (1.5-6.6); NEUTROPHILS % (AUTO) 47.9 %; PLT - PLATELET COUNT 75 10^3/uL (130-450); RED BLOOD COUNT 4.53 10^6/uL (4.20-5.40); RED CELL DISTRIBUTION WIDTH 20.9 % (12.0-15.0); WHITE BLOOD COUNT 3.9 x10^3/uL (4.8-10.8)
[2020-07-19 14:08] LABS: PLATELET ESTIMATE, MANUAL DECREASED (<130,000) (NORMAL); PLATELET MORPHOLOGY NORMAL APPEARANCE (NORMAL)
== END 2020-07-19 23:59 ==
LOC: LAB.R 12:15
DX: I25.10 Atherosclerotic heart disease of native coronary artery without angina pectoris (principal); D69.6 Thrombocytopenia, unspecified; R60.1 Generalized edema
CPT/HCPCS: 85025

== ENCOUNTER 2020-08-03 07:00 | Outpatient (CLI) | payer MEDICARE, OTHER, MEDICAID ==
[2020-08-03 16:00] LABS: BASOPHILS # (AUTO) 0.1 10^3/uL (0.0-0.1); EOSINOPHILS # (AUTO) 0.2 10^3/uL (0.0-0.7); EOSINOPHILS % (AUTO) 3.3 %; HGB - HEMOGLOBIN 13.4 g/dL (12.0-16.0); LYMPHOCYTES # (AUTO) 1.3 10^3/uL (1.5-3.5); LYMPHOCYTES % (AUTO) 25.6 %; MEAN CORPUSCULAR HEMOGLOBIN 31.2 pg (27.0-31.0); MEAN CORPUSCULAR HGB CONC 34.4 g/dL (32.0-36.0); MEAN CORPUSCULAR VOLUME 90.7 fL (81.0-99.0); MONOCYTES % (AUTO) 19.5 %; NEUTROPHILS # (AUTO) 2.6 10^3/uL (1.5-6.6); NEUTROPHILS % (AUTO) 50.2 %; PLT - PLATELET COUNT 89 10^3/uL (130-450); RED CELL DISTRIBUTION WIDTH 21.5 % (12.0-15.0); WHITE BLOOD COUNT 5.1 x10^3/uL (4.8-10.8)
[2020-08-03 16:09] LABS: PHOSPHORUS 3.2 mg/dL (2.5-4.6)
== END 2020-08-03 23:59 | disposition home or self-care (01) ==
LOC: LAB.R 07:00
PROVIDERS: ATTEND Family Medicine
DX: E78.5 Hyperlipidemia, unspecified (principal); D53.9 Nutritional anemia, unspecified; D69.6 Thrombocytopenia, unspecified; E11.319 Type 2 diabetes mellitus with unspecified diabetic retinopathy without macular edema; E80.6 Other disorders of bilirubin metabolism
CPT/HCPCS: 84075; 84100; 84450; 84460; 85025